=== PATIENT | male | born 1955 | race American Indian/Alaskan Native ===

== ENCOUNTER 2017-02-22 10:41 | Outpatient (CLI) | payer BC ==
--- NOTE | 2017-02-24 09:50 | Nuclear Medicine Report ---
NUCLEAR MEDICINE GASTRIC EMPTYING SCAN HISTORY: Nausea and vomiting. FINDINGS: Anterior abdominal images were obtained for 90 minutes following ingestion of 1 mCi of technetium 99m sulfur colloid in oatmeal. Half life for gastric emptying measures 24 minutes. There is no scintigraphic evidence for reflux disease. IMPRESSION: Normal gastric emptying.
== END 2017-02-22 10:42 | disposition home or self-care (01) ==
LOC: NM 10:41
PROVIDERS: ATTEND Internal Medicine Gastroenterology
DX: R11.2 Nausea with vomiting, unspecified (principal)
CPT/HCPCS: 78264; A9541

== ENCOUNTER 2017-04-12 13:58 | Outpatient (CLI) | payer BC ==
--- NOTE | 2017-04-12 15:31 | Fluoroscopy Report ---
Gastrografin enema: History: Constipation. Findings: There is no obstruction noted to the flow of Gastrografin from rectosigmoid to ileocecal region. Filling defects are noted throughout the colon suggestive of retained fecal matter mixed with Gastrografin. Postevacuation film reveals almost complete emptying of the colon. There is no obstructive or constricting lesion identified. Impression: No obstructive or constricting lesion.
== END 2017-04-12 13:59 | disposition home or self-care (01) ==
LOC: FLUORO 13:58
PROVIDERS: ATTEND Internal Medicine Gastroenterology
DX: K59.00 Constipation, unspecified (principal); I10 Essential (primary) hypertension; E11.9 Type 2 diabetes mellitus without complications; E78.00 Pure hypercholesterolemia, unspecified; Z87.891 Personal history of nicotine dependence
CPT/HCPCS: 74283; Q9963